=== PATIENT | male | born 1960 | race Two or more races ===

== ENCOUNTER 2019-11-30 14:26 | Emergency (ER) | payer BC, MEDICAID ==
[~2019-11-30] VITALS: Ht 165.1 cm; Wt 88.9 kg
[2019-11-30 16:06] VITALS: BP 129/76
== END 2019-11-30 16:46 | disposition home or self-care (01) ==
LOC: ER 14:37
DX: R51 Headache (principal)
CPT/HCPCS: 70450

== ENCOUNTER 2020-11-27 13:19 | Emergency (ER) | payer BC, MEDICAID, OTHER ==
[~2020-11-27] VITALS: Ht 165.1 cm; Wt 90.7 kg
[2020-11-27] MEDS ORDERED: methylPREDNISolone SOD SUCC 125 MG/2 ML VL IV ONE (13:30)
[2020-11-27] MEDS: AZITHROMYCIN 500MG/ 250ML 250 ML IV ONE ×2 (13:30→15:15)
[2020-11-27 14:35] LABS: Basophils # (auto) 0 10 ^3/uL (0-0.2); Basophils % (auto) 0.5 % (0.0-2.0); Eosinophils # (auto) 0 10 ^3/uL (0-0.8); Hematocrit 41.2 % (41.0-53.0); Hemoglobin 14.7 g/dL (13.5-17.5); Lymphocytes # (auto) 0.9 10 ^3/uL (0.4-5.4); Lymphocytes % (auto) 21.3 % (10.0-50.0); Mean Corpuscular Hemoglobin 32.6 pg (28.0-32.0); Mean Corpuscular Hgb Conc. 35.6 g/dL (32.0-36.0); Mean Corpuscular Volume 91.6 fL (80.0-100.0); Monocytes # (auto) 0.4 10 ^3/uL (0-1.3); Monocytes % (auto) 9.3 % (0.0-12.0); Neutrophils # (auto) 2.8 10 ^3/uL (1.6-8.6); Neutrophils % (auto) 68.9 % (37.0-80.0); Nucleated Red Blood Cells % 0.2 %; Red Cell Distribution Width 12.7 % (11.8-14.3); White Blood Cell 4.1 10^3/uL (4.4-10.8)
[2020-11-27 14:56] LABS: Albumin 3.4 g/dL (3.4-5.0); Anion Gap 7 (5-15); Blood Urea Nitrogen 18 mg/dL (7-18); Calcium 7.9 mg/dL (8.5-10.1); Carbon Dioxide 23 mmol/L (21-32); Chloride 103 mmol/L (98-107); Glucose 90 mg/dL (74-106); Potassium 3.7 mmol/L (3.5-5.1); Sodium 133 mmol/L (136-145)
[2020-11-27 15:05] LABS: Alanine Aminotransferase 50 U/L (16-61); Alkaline Phosphatase 76 U/L (45-117); Aspartate Aminotransferase 38 U/L (15-37); Bilirubin, Total 0.6 mg/dL (0.2-1.0); CRP High Sensitivity 6.15 mg/dL (< 0.3); GFR African American 74 mL/min; GFR Non-African American 61 mL/min; Total Protein 8.1 g/dL (6.4-8.2)
[2020-11-27] MEDS ORDERED: BAMLANIVIMAB IV ONE (16:00)
[2020-11-27] MEDS ORDERED: ACETAMINOPHEN 325 MG TAB PO ONE (17:00)
[2020-11-27 18:05] VITALS: BP 106/63
== END 2020-11-27 18:16 | disposition home or self-care (01) ==
LOC: ER 13:19
DX: U07.1 COVID-19 (principal); J12.82 Pneumonia due to coronavirus disease 2019
CPT/HCPCS: 36415; 71045; 80053; 82728; 83605; 84484; 85025; 85379; 86141; 87040; 87426; 93005; 96365; 96366; 96375; 99285; J0456; J2930; M0239; Q0239

== ENCOUNTER 2021-09-01 21:52 | Emergency (ER) | payer MEDICAID ==
[~2021-09-01] VITALS: Ht 165.1 cm; Wt 90.7 kg
[2021-09-01 21:54] VITALS: BP 130/77
[2021-09-01] MEDS ORDERED: IODIXANOL 320MG/ML 100ML BTL IV ONE (22:10)
[2021-09-02] MEDS ORDERED: LIDOCAINE VISCOUS 2% 15ML UD PO ONE (03:30)
[2021-09-02] MEDS ORDERED: SUCRALFATE 1 GM/10 ML ORAL SUSP PO ONE (03:30)
== END 2021-09-02 05:20 | disposition left against medical advice (07) ==
LOC: ER 21:54
DX: R09.89 Other specified symptoms and signs involving the circulatory and respiratory systems (principal); M50.30 Other cervical disc degeneration, unspecified cervical region
CPT/HCPCS: 70491; 99284; Q9967